=== PATIENT | male | born 1935 | race Caucasian/White ===

== ENCOUNTER 2016-09-11 11:01 | Day surgery (SDC) ==
[2015-02-07 21:45] VITALS: BMI 26.6
[2016-09-11] MEDS ORDERED: DIPRIVAN 20 ML VIAL IVP ONE (12:55)
[2016-09-11 14:17] VITALS: BP 131/67; TEMP 97.4
--- NOTE | 2016-09-12 10:25 | OP ---
INDICATIONS FOR PROCEDURE: 80-year-old gentleman presents for colonoscopy examination. He was found to have a normocytic anemia and has a history of adenomatous polyps. Colonoscopy greater than three years ago. MEDICATIONS: SEE ANESTHESIA NOTES. PROCEDURE: COLONOSCOPY, SNARE POLYPECTOMY. REPORT: The risks, benefits, alternatives and limitations were discussed in detail with the patient. Informed consent was obtained. After adequate sedation was achieved, a digital rectal exam revealed good tone, no masses. The colonoscope was introduced into the rectum and advanced under direct visual guidance to the cecum. The cecum was identified by the appendiceal orifice and IC valve. I then slowly withdrew the scope in a circumferential manner examining the mucosa quite carefully. I looked on the proximal and distal side of folds and flexures as best as possible. At the junction of the cecum and ascending colon there is a small diminutive 4 to 5 mm polyp and I removed this by snare technique. There is a similar 5 mm polyp in the transverse colon that was removed by snare technique. The remaining colon appeared unremarkable including on retroflex view of the anal canal. The prep was good. The withdrawal time was 12 minutes and 0 seconds. The patient tolerated the procedure well with stable vital signs and pulse oximetry throughout. IMPRESSION: 1. TWO (2) SMALL POLYPS REMOVED. RECOMMENDATIONS: 1. High fiber diet. 2. Office visit as needed. 3. Given his advanced age and health, I recommend future screening and surveillance examinations on an as needed basis. CC: DR. KARAN ANDERSON
== END 2016-09-11 14:18 | disposition home or self-care (01) ==
LOC: SURG 11:01
PROVIDERS: ATTEND Internal Medicine Gastroenterology
DX: Z86.010 Personal history of colon polyps (principal); D12.2 Benign neoplasm of ascending colon; D12.3 Benign neoplasm of transverse colon; D64.9 Anemia, unspecified; E11.9 Type 2 diabetes mellitus without complications

== ENCOUNTER 2019-02-12 06:53 | Outpatient (CLI) ==
[2015-02-07 21:45] VITALS: BMI 26.6
--- NOTE | 2019-02-12 09:56 | US ---
EXAM: Ultrasound of the abdominal aorta. History: Follow-up abdominal aortic aneurysm. Comparison: Ultrasound of the abdominal aorta 02/05/2013 Technique: Multiple sonographic images through the abdominal aorta were obtained. Color duplex Dopp ler was used to interrogate vascular flow. Findings: The proximal abdominal aorta was not well visualized due to obscuration by bowel gas. The mid abdominal aorta measures 1.7 cm x 1.5 cm and previously measured 1.8 cm x 2.6 cm. The distal abdominal aorta measures 2.8 cm x 2.5 cm and previously measured 2.9 cm x 3.1 cm. The right common iliac artery measures 0.9 cm x 1.0 cm and previously measured 1.3 cm x 1.5 cm. The left common iliac artery measures 1.1 cm x 1.0 cm and previously measured 0.9 cm x 1.2 cm. Impression: No sonographic evidence for abdominal aortic aneurysm
--- NOTE | 2019-02-16 11:35 | ECHO2D ---
Date of Exam: 02/12/19 Ordering Physician: DR. TIERRA RUSSO Room #: OP Reason for Echo: SOB, AAA, CABG 2010 M-Mode Normal Adult Results LV Dimensions Normal Adult Results AoV Opening excursions >1.6 >1.6 LVEDD-base- 3.5-5.8 4.2 Ao root dimensions 2.0-3.7 3.0 LVESD-base- 3.1-4.6 L. Atrium dimensions 1.9-3.8 5.1 Post. Wall thickness 0.8-1.1 1.3 IV septum (thickness) 0.7-1.2 1.2 Post. Wall excursion 0.72-1.3 NORMAL Septal motion 0.7 Systolic motion R. Ventricular cavity 1.5-2.0 NORMAL LVEF 60% 58% Paradoxical septal wall motion NORMAL 2-D : 2-D M Mode Echocardiogram was performed using apical four chamber and left parasternal long and short axis views. Mitral, tricuspid and aortic valves appear to be normal. Contractility of the left ventricle seems to be normal, so is the cavity size. ENLARGED LEFT ATRIAL CAVITY. Aortic root appears to be normal. There is no pericardial effusion. There is no thrombus noted in the left ventricular or left aortic cavity. No mitral valve prolapse noted. M-MODE: MV: NORMAL AV: NORMAL TV: NORMAL PV: CHAMBER SIZE: ENLARGED LEFT ATRIAL CAVITY WALL MOTION: NORMAL PERICARDIUM: NORMAL INTERPRETATION: 1. LEFT VENTRICULAR HYPERTROPHY WITH ENLARGED LEFT ATRIAL CAVITY 2. NORMAL LEFT VENTRICULAR CONTRACTILITY- EJECTION FRACTION 58% 3. NORMAL VALVES MTDD
== END 2019-02-12 06:54 | disposition home or self-care (01) ==
LOC: CAR 06:53
PROVIDERS: ATTEND Internal Medicine
DX: R06.02 Shortness of breath (principal); I71.4 Abdominal aortic aneurysm, without rupture
CPT/HCPCS: 76775; 93005; 93010